=== PATIENT | male | born 1975 | race Caucasian/White ===

== ENCOUNTER 2018-04-02 23:44 | Emergency (ER) | payer MEDICAID, SELFPAY ==
[2018-04-02 23:45] VITALS: BP 116/93; PULSE 108; PULSE 99; RESP 20; TEMP 37.2; O2SAT 97; BMI 41.7
--- NOTE | 2018-04-03 00:06 | EKG12_ITS ---
Test Reason : ABD PAIN Blood Pressure : / mmHG Vent. Rate : 098 BPM Atrial Rate : 098 BPM P-R Int : 148 ms QRS Dur : 102 ms QT Int : 362 ms P-R-T Axes : 043 021 005 degrees QTc Int : 462 ms Sinus rhythm with occasional Premature ventricular complexes Otherwise normal ECG Confirmed by SHAHNAZ YUSUF, DANAY ([id number]), field map editor CAITLYN JIN ([id number]) on 04/04/2018 3:43:06 PM Referred By: YULY Confirmed By:DANAY CHRISTIE MD
--- NOTE | 2018-04-03 00:06 | CT_ITS ---
STUDY: CT ABDOMEN AND PELVIS WITHOUT CONTRAST REASON FOR EXAM: Male, 42 years old. Abdominal pain for few days radiating to the back with emesis. RADIATION DOSAGE (If Supplied By Facility): CTDIvol = ( 22.96 ) mGy, DLP = ( 1336.46 ) mGycm TECHNIQUE: Transaxial images were obtained from the dome of the diaphragm to the symphysis pubis without oral contrast, and without intravenous contrast. Sagittal and coronal images were reconstructed. Individualized dose optimization techniques were used for this CT. COMPARISON: 02/25/2014. FINDINGS: The visualized lung bases are unremarkable. The visualized portions of the heart are within normal limits. There are coronary calcifications. Normal liver. There are surgical clips in the gallbladder fossa consistent with a prior cholecystectomy. Normal spleen. Normal pancreas. Normal bilateral adrenal glands. Normal right kidney. Normal left kidney. Normal visualized stomach. Normal small intestine. There is fecal retention. There is mild diverticulosis of the sigmoid colon. There is no evidence of acute diverticulitis. The appendix is visualized and appears normal. Normal abdominal aorta. Normal inferior vena cava. Normal retroperitoneum. The urinary bladder is suboptimally distended. There are prostatic calcifications. There are small bilateral inguinal hernias containing fat. There is a small umbilical hernia containing fat. There are degenerative changes of the spine. There again is wedge shape deformity of L1 vertebra unchanged. CT/Abdomen/Pelvis without Cont IMPRESSION: Diverticulosis without evidence for acute diverticulitis. Status post cholecystectomy. No demonstrated acute process. Electronically Signed: Lopez Boggs MD at 1:15 EDT Tel , Service support ,
--- NOTE | 2018-04-03 00:07 | RAD_ITS ---
STUDY: X-RAY CHEST REASON FOR EXAM: Male, 42 years old. Pain TECHNIQUE: Frontal and lateral views of the chest. COMPARISON: 02/25/2014. FINDINGS: The lungs are clear and expanded. There is no demonstrated pleural abnormality. Normal size heart. Normal mediastinum and sonam. Normal visualized pulmonary arteries. Normal visualized aortic arch and descending thoracic aorta. Normal visualized thoracic spine. Normal visualized ribs, clavicles, and shoulders. There is no demonstrated abnormality of the visualized soft tissue structures of the upper abdomen. RAD/Chest PA and Lateral IMPRESSION: No acute cardiopulmonary disease. Electronically Signed: Jef Urena DO at 0:46 EDT , Service support ,
[2018-04-03] MEDS: Ondansetron 4 MG/2 ML Vial IV (00:15)
[2018-04-03] MEDS: 0.9% Normal Saline 1,000 ML 1000 ML IV (00:15)
[2018-04-03] MEDS: fentaNYL 100 MCG/2 ML Ampul 50 MCG IV (00:15)
[2018-04-03 00:17] LABS: Absolute Lymphocyte Count 3.75 X10^3/ul (0.83-4.51); Absolute Neutrophil Count 4.9 X10^3/uL (2.0-7.7); Basophil# 0.04 X10^3/uL; Basophil% 0.4 % (0-1); Eosinophil# 0.21 X10^3/uL; Eosinophils% 2.1 % (0-5); Hematocrit 44.5 % (40-54); Hemoglobin 15.6 g/dl (13.0-16.5); Lymphocyte # 3.75 X10^3/ul (4.0); Lymphocyte % 38.1 % (19-41); Mean Corp Hgb Conc 35.1 g/gl (32-36); Mean Corpuscular Hgb 30.3 pg (27.0-32.0); Mean Corpuscular Volume 86.4 fL (80-94); Mean Platelet Vol. 10.2 fl (6.2-12.0); Monocyte# 0.91 X10^3/uL; Monocyte% 9.3 % (0-10); Neutrophil # 4.89 X10^3/uL (2.7-7.7); Neutrophil % 49.8 % (47-70); Platelet Count 328 K/mm3 (150-450); RBC Distribution Width CV 13.2 % (11.6-14.6); RBC Distribution Width SD 41.9 fl (35.1-43.9); Red Blood Count 5.15 M/mm3 (4.6-6.2); White Blood Count 9.8 K/mm3 (4.4-11.0)
--- NOTE | 2018-04-03 00:19 | ED.DCSUM_ITS ---
- ER Visit Summary Date of Service: 04/03/18 Chief Complaint: Abdominal pain, vomiting History of Present Illness: The patient is a 42 M who presents for abdominal pain and vomiting. Patient states he has had left upper quadrant abdominal pain for months, for which his doctor has postponed evaluation due to the need for a right inguinal hernia repair. Patient's pain has persisted. Yesterday morning he began having severe vomiting and 2 episodes of loose bowels. Patient states while vomiting he felt something pop in his abdomen, and now is having worse abdominal pain in the left upper quadrant. He denies any urinary symptoms. No fever, no chest pain. Patient states he can only take shallow breaths. He has been drinking alcohol today for the pain because he did not have any Tylenol at home. History includes hypercholesterolemia, hypertension, right inguinal hernia repair, cholecystectomy. Patient states he quit smoking for his hernia surgery 3 months ago. Does use alcohol but is not a daily drinker. Physical Examination: Vital signs: afebrile, hemodynamically stable, no hypoxia on room air General: well nourished, well developed, in no distress, appears uncomfortable, lying supine in bed Skin: warm, dry, no rash, no pallor HEENT: normocephalic and atraumatic; PERRL, EOMI, moist mucous membranes Cardiovascular: regular rate and rhythm without murmurs, no peripheral edema, 2 + pulses all distal extremities Respiratory: No increased work of breathing, shallow respirations, lungs are clear to auscultation bilaterally, no rales, rhonchi or wheezing Abdominal: Abdomen is soft, distended, tender in the left upper and lower quadrants, normoactive bowel sounds, no guarding or rebound, no masses, well- healed surgical incision in the right inguinal crease, no hernias noted on exam MSK: Moves all extremities, no deformities, normal strength Neuro: Awake and alert, oriented ?4. No facial droop, sensation and motor function intact and symmetric Test Results: Abnormal Lab Results 04/02/18 04/02/18 04/03/18 23:53 23:53 00:10 WBC 9.8 RBC 5.15 Hgb 15.6 Hct 44.5 MCV 86.4 MCH 30.3 MCHC 35.1 RDW 13.2 RDW Differential 41.9 Plt Count 328 MPV 10.2 Immature Gran % (Auto) 0.300 Neut % (Auto) 49.8 Lymph % (Auto) 38.1 [place] % (Auto) 9.3 Eos % (Auto) 2.1 Baso % (Auto) 0.4 Absolute Neuts (auto) 4.9 Absolute Lymphs (auto) 3.75 Total Counted Not Reportable Sodium 137 Potassium 3.3 L Chloride 104 Carbon Dioxide 23.0 Anion Gap 10 BUN 12 Creatinine 0.96 Estim Creat Clear Calc 92.76 Est GFR (MDRD) Af Amer 110 Est GFR (MDRD) Non-Af 91 BUN/Creatinine Ratio 12.5 Glucose 135 H Lactic Acid Calcium 8.5 Total Bilirubin 0.30 AST 27 ALT 40 Alkaline Phosphatase 68 Troponin I < 0.02 Total Protein 7.3 Albumin 3.5 Globulin 3.8 Albumin/Globulin Ratio 0.9 Lipase 211 Urine Color Yellow Urine Clarity Clear Urine pH 6.0 Ur Specific [place] 1.015 Urine Protein Negative Urine Glucose (UA) Normal Urine Ketones Negative Urine Occult Blood Negative Urine Nitrite Negative Urine Bilirubin Negative Urine Urobilinogen Normal Ur Leukocyte Esterase Negative Urine RBC 0 SEEN Urine WBC 0 SEEN Ur Squamous Epith Cells 0-5 SEEN Urine Bacteria 0 SEEN Urine Mucus 0 SEEN Ethyl Alcohol 04/03/18 04/03/18 00:15 00:15 WBC RBC Hgb Hct MCV MCH MCHC RDW RDW Differential Plt Count MPV Immature Gran % (Auto) Neut % (Auto) Lymph % (Auto) [place] % (Auto) Eos % (Auto) Baso % (Auto) Absolute Neuts (auto) Absolute Lymphs (auto) Total Counted Sodium Potassium Chloride Carbon Dioxide Anion Gap BUN Creatinine Estim Creat Clear Calc Est GFR (MDRD) Af Amer Est GFR (MDRD) Non-Af BUN/Creatinine Ratio Glucose Lactic Acid 2.3 H Calcium Total Bilirubin AST ALT Alkaline Phosphatase Troponin I Total Protein Albumin Globulin Albumin/Globulin Ratio Lipase Urine Color Urine Clarity Urine pH Ur Specific [place] Urine Protein Urine Glucose (UA) Urine Ketones Urine Occult Blood Urine Nitrite Urine Bilirubin Urine Urobilinogen Ur Leukocyte Esterase Urine RBC Urine WBC Ur Squamous Epith Cells Urine Bacteria Urine Mucus Ethyl Alcohol 43.0 Clinical Impression(s) from Imaging Studies Abdomen/Pelvis CT 04/03/18 00:06 IMPRESSION: Diverticulosis without evidence for acute diverticulitis. Status post cholecystectomy. No demonstrated acute process. Chest X-Ray 04/03/18 00:07 IMPRESSION: No acute cardiopulmonary disease. Emergency Department Course and Treatment: Patient was given IV fluids, Zofran and fentanyl. Patient has allergies to just about every medication except Dilaudid, and he was told because of the national shortage that Dilaudid would not be an option for his pain tonight. Labs were performed showing no leukocytosis, normal hepatic function, normal renal function, normal lipase, normal urine, negative troponin. Alcohol was 43. Lactate was mildly elevated at 2.3, which is likely secondary to patient's vomiting and his alcohol use, as there is no sign of infection that would be concerning for sepsis. EKG showed sinus rhythm without ischemia with occasional PVC. CT of the abdomen and pelvis showed diverticulosis without diverticulitis and no acute findings to explain patient's abdominal pain. Patient does state that this pain has been ongoing, but just worse since vomiting. Thus this is likely an acute exacerbation of chronic pain other than new serious pathology. Patient had improvement in his pain after the fentanyl and Zofran. Patient was offered a prescription for Zofran, which she accepted, but he was informed because of his prescription history I would be unable to provide him with any opiate pain medication. He has multiple recent prescriptions of [place] or Percocet and monthly gabapentin prior to that. Patient stated he was not looking for pain medications, and he will use [id number] pain medication of his choice at home. He is to follow-up with his doctor. Return precautions given and patient discharged home. Treatment Plan: [] Disposition: [] Impression: Abdominal pain This note was generated with [employer] dictation software. It may contain incorrect words, spelling, and punctuation that were not noted in review of the chart prior to signing ED Disposition - Plan for ED Patient: Disposition: Home or Assisted Living Chief Complaint: Abd Pain Instructions: ED Abdominal Pain Unkn Cause Male Prescriptions: Ondansetron [Zofran Odt] 4 mg PO Q8H PRN PRN #15 tab PRN Reason: Nausea Referrals: Mega Llamas DO [NON CLINICAL AFFILIATE] - Doctor,Your [STAFF PHYSICIAN] - 1-2 Days if not improving Additional Instructions: You received pain and nausea medicine as well as IV fluids in the emergency department. A CT scan of your abdomen did not show any findings to explain your pain, and no concerning findings that would require admission or surgery. You have been prescribed nausea medication to use at home. Please continue using for the counter pain medication your choice for any further pain, or follow-up with your primary care doctor to discuss further pain management. If any worsening of your condition or any new concerning symptoms, please return emergency department immediately for another evaluation.
[2018-04-03 00:21] LABS: POSITIVE COUNT NO; POSITIVE DIFFERENTIAL NO; POSITIVE MORPHOLOGY NO
[2018-04-03 00:21] LABS: Bacteria 0 SEEN /hpf (None Seen); Mucous, Urine 0 SEEN /hpf (<or=2+); Red Blood Cells-Urine 0 SEEN /hpf (0-5); White Blood Cells 0 SEEN /hpf (0-5)
[2018-04-03 00:28] LABS: Color, Urine Yellow (Yellow); Glucose, Dipstick Normal (Normal); Ketone-Dipstick Negative (Negative); Leukocyte Esterase-Dipstick Negative /ul (Negative); Nitrite-Dipstick Negative (Negative); Occult Blood-Urine Negative /ul (Negative); Protein-Dipstick Negative (Negative); Specific Gravity, Urine 1.015 (1.002-1.030); Urine Bilirubin Dipstick Negative (Negative); Urine Clarity Clear (Clear); Urine Urobilinogen Normal (Normal)
[2018-04-03 00:37] LABS: Squamous Epithelial Cells - UA 0-5 SEEN /hpf (0-5)
[2018-04-03 00:57] LABS: ALB/GLOB Ratio 0.9 RATIO (0.9-2.4); AST(SGOT) 27 U/L (15-37); Alanine Aminotransfer ALT/SGPT 40 U/L (16-61); Albumin, Serum 3.5 g/dL (3.2-5.0); Alkaline Phosphatase 68 U/L (45-117); Anion Gap 10 (5-15); BUN 12 mg/dL (7-18); BUN/Creat Ratio 12.5 RATIO (10-20); Calcium,Total 8.5 mg/dL (8.5-10.1); Chloride 104 mmol/L (98-107); Creatinine, Serum 0.96 mg/dL (0.70-1.30); EST Glomerular Filtration Rate 91 mL/min (>60); Est Glom Filt Rate - Afr Amer 110 mL/min (>60); Estimated Creatinine Clearance 92.76 ml/min; Globulin 3.8 g/dL (2.2-4.2); Glucose 135 mg/dL (74-106); Lipase 211 U/L (73-393); Potassium 3.3 mmol/L (3.5-5.1); Protein, Total 7.3 g/dL (6.4-8.2); Sodium Level 137 mmol/L (136-145)
[2018-04-03 00:58] LABS: Lactic Acid 2.3 mmol/L (0.4-2.0)
--- NOTE | 2018-04-03 00:58 | ED.RN ---
lab called with critical lab results. lactic acid 2.3. Dr. Bentley made aware. no new orders at this time
--- NOTE | 2018-04-03 01:48 | ED.DEP ---
ED Disposition - Plan for ED Patient: Disposition: Home or Assisted Living Chief Complaint: Abd Pain Instructions: ED Abdominal Pain Unkn Cause Male Prescriptions: Ondansetron [Zofran Odt] 4 mg PO Q8H PRN PRN #15 tab PRN Reason: Nausea Referrals: Mega Llamas DO [NON CLINICAL AFFILIATE] - Doctor,Your [STAFF PHYSICIAN] - 1-2 Days if not improving Additional Instructions: You received pain and nausea medicine as well as IV fluids in the emergency department. A CT scan of your abdomen did not show any findings to explain your pain, and no concerning findings that would require admission or surgery. You have been prescribed nausea medication to use at home. Please continue using for the counter pain medication your choice for any further pain, or follow-up with your primary care doctor to discuss further pain management. If any worsening of your condition or any new concerning symptoms, please return emergency department immediately for another evaluation.
[2018-04-03 01:59] VITALS: BP 126/75; PULSE 67; RESP 14; RESP 18; O2SAT 100
[2018-04-03 04:18] LABS: Reflex Lactate? Y
== END 2018-04-03 02:00 | disposition home or self-care (01) ==
PROVIDERS: Emergency Provider Emergency Medicine
DX: R10.12 Left upper quadrant pain (principal); R10.814 Left lower quadrant abdominal tenderness; R11.2 Nausea with vomiting, unspecified; R19.7 Diarrhea, unspecified; R06.00 Dyspnea, unspecified; F10.929 Alcohol use, unspecified with intoxication, unspecified; Y90.9 Presence of alcohol in blood, level not specified; I49.3 Ventricular premature depolarization; K57.30 Diverticulosis of large intestine without perforation or abscess without bleeding; E66.9 Obesity, unspecified; I10 Essential (primary) hypertension; E78.00 Pure hypercholesterolemia, unspecified; Z87.19 Personal history of other diseases of the digestive system; Z90.49 Acquired absence of other specified parts of digestive tract; Z87.891 Personal history of nicotine dependence; Z79.899 Other long term (current) drug therapy
CPT/HCPCS: 71046; 74176; 80053; 80320; 81001; 83605; 83690; 84484; 85025; 93005; 96361; 96374; 96375; 99285; J7030; A4216; G0480; J2405

== ENCOUNTER 2019-02-04 12:02 | Emergency (ER) | payer MEDICAID, SELFPAY ==
[2018-12-18 14:48] VITALS: BMI 44.6
[2019-02-04 12:04] VITALS: BP 123/87; PULSE 77; PULSE 83; RESP 17; RESP 18; TEMP 36.9; O2SAT 96; O2SAT 97; BMI 40.6
[2019-02-04 12:37] LABS: Absolute Lymphocyte Count 1.65 X10^3/ul (0.83-4.51); Absolute Neutrophil Count 6.8 X10^3/uL (2.0-7.7); Basophil# 0.03 X10^3/uL; Basophil% 0.3 % (0-1); Eosinophil# 0.21 X10^3/uL; Eosinophils% 2.2 % (0-5); Hematocrit 44.3 % (40-54); Hemoglobin 14.5 g/dl (13.0-16.5); Lymphocyte # 1.65 X10^3/ul (4.0); Lymphocyte % 17.5 % (19-41); Mean Corp Hgb Conc 32.7 g/gl (32-36); Mean Corpuscular Volume 88.6 fL (80-94); Mean Platelet Vol. 9.9 fl (6.2-12.0); Monocyte# 0.75 X10^3/uL; Monocyte% 7.9 % (0-10); Neutrophil # 6.78 X10^3/uL (2.7-7.7); Neutrophil % 71.9 % (47-70); POSITIVE COUNT NO; POSITIVE DIFFERENTIAL NO; POSITIVE MORPHOLOGY NO; Platelet Count 334 K/mm3 (150-450); RBC Distribution Width CV 13.8 % (11.6-14.6); RBC Distribution Width SD 44.4 fl (35.1-43.9); White Blood Count 9.4 K/mm3 (4.4-11.0)
[2019-02-04 12:54] LABS: Anion Gap 9 (5-15); BUN 7 mg/dL (7-18); BUN/Creat Ratio 6.9 RATIO (10-20); Calcium,Total 8.5 mg/dL (8.5-10.1); Chloride 108 mmol/L (98-107); Creatinine, Serum 1.02 mg/dL (0.70-1.30); EST Glomerular Filtration Rate 84 mL/min (>60); Est Glom Filt Rate - Afr Amer 102 mL/min (>60); Glucose 109 mg/dL (74-106); Potassium 3.2 mmol/L (3.5-5.1); Sodium Level 142 mmol/L (136-145)
[2019-02-04 12:59] LABS: Lipase 134 U/L (73-393)
[2019-02-04 13:00] LABS: AST(SGOT) 21 U/L (15-37); Alanine Aminotransfer ALT/SGPT 43 U/L (16-61); Albumin, Serum 3.5 g/dL (3.2-5.0); Alkaline Phosphatase 72 U/L (45-117); Bilirubin, Direct 0.09 mg/dL (0.00-0.30); Globulin 4.2 g/dL (2.2-4.2); Protein, Total 7.7 g/dL (6.4-8.2)
--- NOTE | 2019-02-04 14:17 | ED.DCSUM_ITS ---
- ER Visit Summary Date of Service: 02/04/19 Chief Complaint: Abdominal pain History of Present Illness: The patient is a 43 M who sees Lauren Sharpe. He reports that he had a hernia repair in December [address] Wilkins in [place]. He at that time was told that he had 2 small ventral hernias in the epigastric region as well. He states that 5 days ago he was helping move a dresser and felt a pop there and since that time he has had severe pain. He describes a continuous sharp pain Zeta 10 at worst and 6 out of 10 currently. Is worsened by bending at the hips or coughing. Is relieved by nothing. Ports he has been nauseated. He vomited yesterday. No blood in his emesis. No diarrhea. His last bowel was today. He is passing flatus. No blood in stools or black tarry stools. Physical Examination: Vitals: Stable. Afebrile. General: Well-nourished and well-developed. Head: Normocephalic atraumatic. Neck: Supple, no lymphadenopathy. No JVD. Nontender. Cardiovascular: Regular rate and rhythm. No murmurs. Respiratory: No respiratory distress. Clear to auscultation bilaterally. Abdominal: Soft, moderate tenderness palpation in the epigastric region over an obvious hernia. Bowel contents are easily reducible. Nondistended, normal bowel sounds. No guarding, rebound, or peritoneal signs. Back: Nontender. Extremities: Nontender, no edema. Skin: Normal color, no rash. Neurologic: Alert and oriented ?3. Cranial nerves II through XII are intact. Normal strength and sensation. Psych: Normal affect. Test Results: CBC shows segment neutrophils 70 lymphs lites of 18. Chem-7 shows potassium 3.2, chloride 108, glucose 109. LFTs normal. Lipase normal. Emergency Department Course and Treatment: An [facility] report was obtained which shows he has had no prescriptions for opiates in the past year. Is treated the dose of [place] and Zofran here. Treatment Plan: Patient will be discharged with 10 [place] and Zofran. Instructed to follow-up with his surgeon as soon as possible. The signs of an incarcerated or strangulate hernia were discussed and he is instructed to return for these. Disposition: To home in improved and stable condition. Impression: 1. Ventral hernia. This note was generated with Dragon dictation software. It may contain incorrect words, spelling, and punctuation that were not noted in review of the chart prior to signing ED Disposition - Plan for ED Patient: Disposition: Home or Assisted Living Instructions: What Is a Hernia? Prescriptions: Hydrocodone Bitart/Apap 5-325 [[place] 5MG-325MG] 1 tablet PO Q4H PRN PRN 2 Days #10 tablet PRN Reason: Pain Referrals: Lauren Eid DO [Primary Care Provider] - Keep Ad[facility] appointment
[2019-02-04] MEDS: HYDROcodone Bitartrate/Apap 5/325 Tablet PO (14:36)
[2019-02-04] MEDS: Ondansetron ODT 4 MG Tablet PO (14:36)
[2019-02-04 14:40] VITALS: PULSE 76; RESP 16
== END 2019-02-04 14:44 | disposition home or self-care (01) ==
LOC: ED 14:24
PROVIDERS: Emergency Medicine; Emergency Provider Emergency Medicine
DX: K43.9 Ventral hernia without obstruction or gangrene (principal); R11.2 Nausea with vomiting, unspecified; I10 Essential (primary) hypertension; Z72.0 Tobacco use; Z79.899 Other long term (current) drug therapy
CPT/HCPCS: 80048; 80076; 83690; 85025; 99284

== ENCOUNTER 2019-05-04 14:14 | Emergency (ER) | payer MEDICAID, SELFPAY ==
[2019-05-04 14:15] VITALS: BP 124/79; PULSE 98; RESP 18; TEMP 37.1; O2SAT 98; BMI 40.5
--- NOTE | 2019-05-04 15:13 | CT_ITS ---
STUDY: CT BRAIN WITHOUT CONTRAST REASON FOR EXAM: Male, 43 years old. Posttraumatic headache RADIATION DOSAGE (If Supplied By Facility): CTDIvol = ( 60.81 ) mGy, DLP = ( 1089.89 ) mGycm TECHNIQUE: Transaxial CT imaging of the brain was performed without administration of intravenous contrast material. Individualized dose optimization techniques were used for this CT. COMPARISON: August 18, 2016. FINDINGS: Normal soft tissue structures. Normal calvarium. Normal size ventricles and extra-axial spaces for the patient's age. Normal white matter tracts of the cerebral hemispheres. Normal basal ganglia and thalami. Normal brainstem. Normal cerebellum. There is no intracranial hemorrhage. There are no findings of an acute ischemic infarction. Normal visualized paranasal sinuses. No significant change since prior exam CT/Brain/Head without Contrast IMPRESSION: Normal unenhanced CT scan of the brain. Electronically Signed: Markos Wallace MD at 16:13 EDT , Service support ,
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
--- NOTE | 2019-05-04 15:36 | RAD_ITS ---
STUDY: X-RAY - LUMBAR SPINE REASON FOR EXAM: Male, 43 years old. Lower back pain after fall. TECHNIQUE: 3 view(s) of the lumbar spine were obtained. COMPARISON: None FINDINGS: Normal lumbar lordosis. There is no substantial scoliosis. There is a normal alignment of the vertebrae. Normal vertebral bodies and endplates. Normal disc space heights. There are cholecystectomy clips and phleboliths. RAD/Lumbar Spine 2 or 3 Views IMPRESSION: No acute abnormality. Electronically Signed: Gabriel Ambrose MD at 16:05 EDT , Service support ,
[2019-05-04] MEDS: Acetaminophen 500 MG Tablet 1000 MG PO (16:09)
--- NOTE | 2019-05-04 16:28 | ED.RN ---
DISCHARGE INSTRUCTIONS GIVEN TO AND REVIEWED WITH PATIENT, PATIENT DENIES QUESTIONS OR CONCERNS AND VOICES UNDERSTANDING OF DISCHARGE INSTRUCTIONS. PT AMBULATES OUT OF ROOM WITHOUT ISSUE.
== END 2019-05-04 16:29 | disposition home or self-care (01) ==
PROVIDERS: Emergency Provider Emergency Medicine; PCP Student in an Organized Health Care Education/Training Program; Referring Provider Student in an Organized Health Care Education/Training Program
DX: S06.0X0A Concussion without loss of consciousness, initial encounter (principal); S30.0XXA Contusion of lower back and pelvis, initial encounter; R40.2410 Glasgow coma scale score 13-15, unspecified time; W10.1XXA Fall (on)(from) sidewalk curb, initial encounter; Y93.9 Activity, unspecified; Y92.9 Unspecified place or not applicable; F17.200 Nicotine dependence, unspecified, uncomplicated
CPT/HCPCS: 70450; 72100; 99283

== ENCOUNTER 2019-11-10 10:27 | Emergency (ER) | payer MEDICAID, SELFPAY ==
[2019-05-25 16:52] VITALS: BMI 40.5
[2019-11-10 10:28] VITALS: BP 123/71; PULSE 93; RESP 16; TEMP 36.4; O2SAT 98; BMI 39.4
--- NOTE | 2019-11-10 11:05 | ED.DCSUM_ITS ---
- ER Visit Summary Date of Service: 11/10/19 Chief Complaint: Abdominal wall spider bite versus abscess History of Present Illness: The patient is a 44 M history of prior abscesses. Also hypertension high cholesterol. Patient states he is developed redness to his abdominal wall since Saturday. He denies any fever or chills. Initially thought was a spider bite but he has had abscesses before. Physical Examination: Appearing middle-aged male no acute distress vital signs stable afebrile. HEENT exam unremarkable. Lungs clear to auscultation. Heart regular rhythm no murmur. Abdomen soft. Nondistended normal bowel sounds no peritoneal signs. He is oh 1 inch x 1 or 2 inch square area of a red raised what appears to be abscess. There is no surrounding cellulitis. No necrotic tissue. There is mild fluctuance. This is amenable to incision and drainage. Patient is moving all 4 extremities. No edema. Neurologically is awake and alert with no focal motor deficits. Test Results: None Emergency Department Course and Treatment: Topical let applied to the abscess. Incision and drainage to be done with an 11 blade scalpel. A 1 inch horizontal incision. 2 cc of pus was expressed. I broke up any loculations and placed about 2 inches of quarter inch packing gauze. Patient tolerated procedure well. Dressing will be applied. Treatment Plan: Keflex 500 4 times daily for 7 days. Soaks or compresses. Follow-up if not improving. Disposition: Discharge Impression: Abdominal wall abscess Incision and drainage by ER This note was generated with [employer] dictation software. It may contain incorrect words, spelling, and punctuation that were not noted in review of the chart prior to signing ED Disposition - Plan for ED Patient: Referrals: Mega lLamas [Primary Care Provider] -
[2019-11-10] MEDS: Lidocaine/Epi/Tetracaine 50 ML 1 APPLIC TOPICAL (11:37)
--- NOTE | 2019-11-10 12:38 | ED.DEP ---
ED Disposition - Plan for ED Patient: Disposition: Home or Assisted Living Instructions: ABSCESS, Incision and Drainage Prescriptions: Cephalexin [Keflex] 500 mg PO Q6 #30 cap Prescription Printed Referrals: Mega Llamas [Primary Care Provider] - 1 Week if not improving Additional Instructions: Low up if not improving return if worse. Pull packing out in 5 days. If it falls out leave it out. Warm compresses or soaks to the area. Tylenol and/or Motrin for pain. Keflex 1 pill 4 times a day till gone.
[2019-11-10] MEDS: Cephalexin 250 MG Capsule 500 MG PO (13:10)
== END 2019-11-10 13:12 | disposition home or self-care (01) ==
PROVIDERS: Emergency Provider Emergency Medicine; Family Provider Student in an Organized Health Care Education/Training Program; PCP Student in an Organized Health Care Education/Training Program
DX: L02.211 Cutaneous abscess of abdominal wall (principal); E78.00 Pure hypercholesterolemia, unspecified; I10 Essential (primary) hypertension; Z79.899 Other long term (current) drug therapy; Z72.0 Tobacco use
CPT/HCPCS: 10060; 99283

== ENCOUNTER 2021-02-27 17:58 | Emergency (ER) | payer MEDICAID, SELFPAY ==
[2021-02-27 17:59] VITALS: BP 156/103; PULSE 109; RESP 22; TEMP 34.9; O2SAT 93; BMI 39.1
--- NOTE | 2021-02-27 18:57 | CT_ITS ---
STUDY: CT ABDOMEN AND PELVIS WITH CONTRAST REASON FOR EXAM: Male, 45 years old. Lower abd pain -- IV PO Contrast RADIATION DOSAGE (If Supplied By Facility): CTDIvol = ( 17.07 ) mGy, DLP = ( 1415.55 ) mGycm TECHNIQUE: Transaxial images were obtained from the dome of the diaphragm to the symphysis pubis without oral contrast. 100 CC ISOVUE 370 was administered. Sagittal and coronal images were reconstructed. Individualized dose optimization techniques were used for this CT. COMPARISON: 04/03/2018 FINDINGS: There are few dependent opacities within the lower lobes and lingula. The visualized portions of the heart are within normal limits. There is decreased attenuation of the liver consistent with steatosis. There are surgical clips in the gallbladder fossa consistent with a prior cholecystectomy. Normal spleen. Normal pancreas. Normal bilateral adrenal glands. Normal right kidney. Normal left kidney. Normal visualized stomach. Normal small intestine. There is diverticulosis, with thickening of the sigmoid colon wall, and pericolonic inflammation changes consistent with acute diverticulitis. The appendix is visualized and appears normal. There are scattered peripheral calcifications of the abdominal aorta. Normal inferior vena cava. Normal retroperitoneum. Normal urinary bladder. There are postsurgical changes of the superior anterior abdominal wall. There are mild degenerative changes of the visualized thoracic and lumbar spine. CT/Abdomen/Pelvis WITH Contrast IMPRESSION: Acute diverticulitis of the sigmoid colon. Fatty infiltration of the liver. Minimal dependent opacities within the lower lobes and lingula, may be secondary to underlying atelectasis and/or multifocal pneumonia. Atherosclerosis. Electronically Signed: Nesha Hernadez MD at 21:33 EDT Tel , Service support ,
[2021-02-27 19:15] LABS: Absolute Lymphocyte Count 0.69 X10^3/uL (0.83-4.51); Basophil# 0.05 X10^3/uL; Basophil% 0.2 % (0-1); Eosinophil# 0.02 X10^3/uL; Eosinophils% 0.1 % (0-5); Hematocrit 47.3 % (40-54); Lymphocyte # 0.69 X10^3/ul (4.0); Lymphocyte % 3.4 % (19-41); Mean Corp Hgb Conc 33.8 g/dL (32-36); Mean Corpuscular Hgb 29.1 pg (27.0-32.0); Mean Corpuscular Volume 86.2 fL (80-94); Monocyte# 1.26 X10^3/uL; Monocyte% 6.3 % (0-10); NRBC Flagged by Analyzer 0 % (0-5); Neutrophil % 89.4 % (47-70); Platelet Count 337 K/mm3 (150-450); RBC Distribution Width CV 13.3 % (11.6-14.6); RBC Distribution Width SD 41.9 fl (35.1-43.9); Red Blood Count 5.49 M/mm3 (4.6-6.2); White Blood Count 20.1 K/mm3 (4.4-11.0)
[2021-02-27] MEDS: Morphine 4 MG/ML Syringe IV (19:15)
[2021-02-27] MEDS: Ondansetron 4 MG/2 ML Vial IV (19:15)
[2021-02-27] MEDS: 0.9% Normal Saline 1,000 ML 1000 ML IV (19:15)
[2021-02-27 19:26] LABS: Anion Gap 5 (5-15); BUN 6 mg/dL (7-18); BUN/Creat Ratio 7.4 RATIO (10-20); Calcium,Total 8.7 mg/dL (8.5-10.1); Chloride 106 mmol/L (98-107); Creatinine, Serum 0.81 mg/dL (0.70-1.30); EST Glomerular Filtration Rate 108 mL/min (>60); Est Glom Filt Rate - Afr Amer 131 mL/min (>60); Estimated Creatinine Clearance 106.54 ml/min; Glucose 126 mg/dL (74-106); Potassium 3.3 mmol/L (3.5-5.1); Sodium Level 137 mmol/L (136-145)
[2021-02-27 19:29] LABS: Squamous Epithelial Cells - UA 0 SEEN /hpf (0-5); White Blood Cells 0 SEEN /hpf (0-5)
[2021-02-27 19:48] LABS: Color, Urine Yellow (Yellow); Glucose, Dipstick Normal (Normal); Ketone-Dipstick 5 mg/dl (Negative); Leukocyte Esterase-Dipstick Negative /ul (Negative); Nitrite-Dipstick Negative (Negative); Occult Blood-Urine 25 /ul (Negative); Protein-Dipstick 30 mg/dl (Negative); Urine Bilirubin Dipstick Negative (Negative); Urine Clarity Clear (Clear); Urine Urobilinogen 1 mg/dl (Normal)
[2021-02-27 19:57] LABS: Bacteria RARE /hpf (None Seen); Mucous, Urine 1+ /hpf (<or=2+); Red Blood Cells-Urine 0-5 SEEN /hpf (0-5)
[2021-02-27 19:58] VITALS: BP 134/82; PULSE 91; RESP 18; O2SAT 98
[2021-02-27 21:00] VITALS: RESP 16
--- NOTE | 2021-02-27 21:18 | ED.VISSUMM ---
- ER Visit Summary Date of Service: 02/27/21 Chief Complaint: Abdominal pain History of Present Illness: The patient is a [address] Llamas. He reports he has lower abdominal pain again 5 to 6 days ago. Is gradually gotten worse. Is a cramping pain is 10 at worst and a 10 currently. Is worsened by coughing. Is relieved by remaining still. He reports has been nauseated and vomited 4 times. No blood in his emesis. His last bowel was today. Reports it was a small bowel movement. He typically goes twice a day. He is passing flatus, but is painful. Patient complains of sweats. He denies any fever or chills. He has had dysuria and frequency. Physical Examination: Vitals: Stable. Afebrile. General: Well-nourished and well-developed. Head: Normocephalic atraumatic. Neck: Supple, no lymphadenopathy. No JVD. Nontender. Cardiovascular: Regular rate and rhythm. No murmurs. Respiratory: No respiratory distress. Clear to auscultation bilaterally. Abdominal: Soft, moderate suprapubic tenderness to palpation, nondistended, normal bowel sounds. No guarding, rebound, or peritoneal signs. Back: Nontender. Extremities: Nontender, no edema. Skin: Normal color, no rash. Neurologic: Alert and oriented ?3. Cranial nerves II through XII are intact. Normal strength and sensation. Psych: Normal affect. Test Results: CBC shows a white count of 20.1 with 89-second neutrophils and 3 lymphocytes. Chem-7 shows potassium 3.3, glucose 126, BUN of 6. UA is negative. Clinical Impression(s) from Imaging Studies Abdomen/Pelvis CT 02/27/21 18:57 IMPRESSION: Acute diverticulitis of the sigmoid colon. Fatty infiltration of the liver. Minimal dependent opacities within the lower lobes and lingula, may be secondary to underlying atelectasis and/or multifocal pneumonia. Atherosclerosis. Electronically Signed: Nesha Hernadez MD at 21:33 EDT Tel , Service support , Emergency Department Course and Treatment: Patient was given morphine and Zofran IV. He was given Augmentin p.o. Treatment Plan: Patient will be discharged on Augmentin. He does have an allergy to Cipro. Is given a prescription for [place] and senna. Instructed to follow-up with his primary care physician in 1 week for another exam. Return to the emergency department for any worsening symptoms. Disposition: To home in improved and stable condition. Impression: 1. Sigmoid diverticulitis. This note was generated with [employer] dictation software. It may contain incorrect words, spelling, and punctuation that were not noted in review of the chart prior to signing ED Disposition - Plan for ED Patient: Instructions: ED Diverticulitis Prescriptions: Amox/Clavulanate Tablet [Augmentin Tablet] 875 mg PO Q12H #20 tablet Hydrocodone Bitart/Apap 5-325 [[place] 5MG-325MG] 1 tablet PO Q4H PRN PRN 2 Days #10 tablet PRN Reason: Pain Sennosides [Senna] 8.6 mg PO QHS #10 tablet Referrals: Mega Llamas [Primary Care Provider] - 1 Week
[2021-02-27] MEDS: Amox/Clavulanate 875 MG Tablet PO (21:51)
== END 2021-02-27 21:58 | disposition home or self-care (01) ==
LOC: ED 19:11
PROVIDERS: Emergency Provider Emergency Medicine; PCP Student in an Organized Health Care Education/Training Program
DX: K57.32 Diverticulitis of large intestine without perforation or abscess without bleeding (principal); I10 Essential (primary) hypertension; E78.00 Pure hypercholesterolemia, unspecified; K58.9 Irritable bowel syndrome, unspecified; Z79.899 Other long term (current) drug therapy; F17.200 Nicotine dependence, unspecified, uncomplicated
CPT/HCPCS: 74177; 80048; 81001; 85025; 96361; 96374; 96375; 99284; J7030; Q9967; A4216; J2405